=== PATIENT | female | born 1965 | race Caucasian/White ===

== ENCOUNTER → 2020-07-28 | Outpatient (CLI) | payer OTHER ==
[~2020-07-28] MED LIST: AMARYL 2MG TABLE2 MG PO; CELEXA40 MG PO; CETIRIZINE HCL10 MG PO; CYMBALTA 20 MG20 MG PO; DRIZALMA SPRINK60 MG PO; DULOXETINE HCL60 MG PO; ELIQUIS2.5 MG PO; GABAPENTIN400 MG PO; HYDROCODON-ACE1 EAC6 PO; LEVOTHYROXINE75 MC1 PO; LIPITOR TAB 2020 MG PO; LOSARTAN POTAS100 MG PO; METFORMIN HCL500 MG PO; PERCOCET 10-321 EACH PO; PROTONIX20 MG PO; RELAFEN500 MG PO; SUMATRIPTAN SUC25 MG PO
[2020-07-28 12:03] LABS: HEMOGLOBIN 13.8 gm/dl (12.3-15.3); RED BLOOD COUNT 4.32 M/UL (4.00-5.10); WHITE BLOOD COUNT 7.2 K/UL (4.5-11.0)
[2020-07-28 12:26] LABS: BUN/CREATININE RATIO 22 (0-10)
== END ==
LOC: EDSTATUS 10:30 → OPSV2 10:30
PROVIDERS: Orthopaedic Surgery
DX: Z01.818 Encounter for other preprocedural examination (principal); M16.11 Unilateral primary osteoarthritis, right hip; R94.31 Abnormal electrocardiogram [ECG] [EKG]
CPT/HCPCS: 36415; 71046; 80048; 81001; 85025; 87081; 93005

== ENCOUNTER 2020-08-07 06:57 | Day surgery (SDC) | payer OTHER ==
[~2020-08-07] VITALS: Ht 157.5 cm; Wt 86.2 kg
[2020-08-07] MEDS ORDERED: LEVOTHYROXINE75 MC1 PO (07:45)
[2020-08-07] MEDS ORDERED: GABAPENTIN400 MG PO (07:45)
[2020-08-07] MEDS ORDERED: CYMBALTA 20 MG20 MG PO (07:46)
[2020-08-07] MEDS ORDERED: LOSARTAN POTAS100 MG PO (07:46)
[2020-08-07] MEDS ORDERED: DRIZALMA SPRINK60 MG PO (07:46)
[2020-08-07] MEDS ORDERED: LIPITOR TAB 2020 MG PO (07:47)
[2020-08-07] MEDS ORDERED: PROTONIX20 MG PO (07:47)
[2020-08-07] MEDS ORDERED: AMARYL 2MG TABLE2 MG PO (07:47)
[2020-08-07] MEDS ORDERED: CELEXA40 MG PO (07:48)
[2020-08-07] MEDS ORDERED: CETIRIZINE HCL10 MG PO (07:49)
[2020-08-07] MEDS ORDERED: HYDROCODON-ACE1 EAC6 PO (07:49)
[2020-08-07] MEDS ORDERED: SUMATRIPTAN SUC25 MG PO (07:51)
[2020-08-07] MEDS ORDERED: METFORMIN HCL500 MG PO (07:52)
[2020-08-07] MEDS ORDERED: RELAFEN500 MG PO (07:52)
[2020-08-07] MEDS ORDERED: PERCOCET 10-321 EACH PO (12:14)
[2020-08-07] MEDS ORDERED: DULOXETINE HCL60 MG PO (19:26)
[2020-08-08 04:09] LABS: HEMOGLOBIN 10.8 gm/dl (12.3-15.3); RED BLOOD COUNT 3.4 M/UL (4.00-5.10); WHITE BLOOD COUNT 12.9 K/UL (4.5-11.0)
[2020-08-08 04:33] LABS: BUN/CREATININE RATIO 26 (0-10)
[2020-08-08] MEDS ORDERED: ELIQUIS2.5 MG PO (10:03)
== END 2020-08-08 13:57 | disposition home or self-care (01) ==
LOC: ZOBSOF 06:57 → OR 06:57 → EDSTATUS 08:15 → M/S 15:18 → ZOBSOF 15:18 → M/S 08-08 13:57 → OR 08-08 13:57
PROVIDERS: Orthopaedic Surgery
PROC: 3E0T3GC Introduction of Other Therapeutic Substance into Peripheral Nerves and Plexi, Percutaneous Approach (ICD-10-PCS; 2020-08-07)
PROC: 0SR9049 Replacement of Right Hip Joint with Ceramic on Polyethylene Synthetic Substitute, Cemented, Open Approach (ICD-10-PCS; principal; 2020-08-07 08:15)
DX: M16.11 Unilateral primary osteoarthritis, right hip (principal); E11.9 Type 2 diabetes mellitus without complications; I10 Essential (primary) hypertension; E03.9 Hypothyroidism, unspecified; G89.29 Other chronic pain; G43.909 Migraine, unspecified, not intractable, without status migrainosus; G89.18 Other acute postprocedural pain; E78.00 Pure hypercholesterolemia, unspecified; K21.9 Gastro-esophageal reflux disease without esophagitis; E78.5 Hyperlipidemia, unspecified; F41.9 Anxiety disorder, unspecified; F32.9 Major depressive disorder, single episode, unspecified; F11.20 Opioid dependence, uncomplicated; J44.9 Chronic obstructive pulmonary disease, unspecified; G47.30 Sleep apnea, unspecified; F41.0 Panic disorder [episodic paroxysmal anxiety]; E66.9 Obesity, unspecified; Z68.34 Body mass index [BMI] 34.0-34.9, adult; Z20.822 Contact with and (suspected) exposure to COVID-19; Z79.84 Long term (current) use of oral hypoglycemic drugs; Z91.040 Latex allergy status; Z79.899 Other long term (current) drug therapy; Z88.6 Allergy status to analgesic agent; Z87.891 Personal history of nicotine dependence
CPT/HCPCS: 0; 36415; 72170; 76000; 80048; 82962; 85025; 86850; 86900; 86901; 97110-GP-CQ; 97116-GP-CQ; 97163; 97166; 97535; C1776; J0171; J0690; J1100; J1170; J1885; J2001; J2250; J2370; J2405; J2704; J2710; J2795; J3010; J7030; J7050; J7120